=== PATIENT | female | born 1940 | race Caucasian/White ===

== ENCOUNTER 2023-07-22 11:24 | Emergency (ER) | payer MEDICARE, OTHER ==
[2023-07-22] MEDS: Sodium Chloride 0.9% 2.5 ML Syringe FLUSH PRN (11:41)
[2023-07-22] MEDS: Sodium Chloride 0.9% 10 ML Syringe FLUSH PRN (11:41)
[2023-07-22 11:57] LABS: BASOPHILS ABSOLUTE AUTO 0.08 K/uL (0.00-0.20); BASOPHILS PERCENT AUTO 0.5 % (0.0-1.0); EOSINOPHILS ABSOLUTE AUTO 0.06 K/uL (0.00-0.45); EOSINOPHILS PERCENT AUTO 0.4 % (0.0-6.0); HEMATOCRIT 44.5 % (37.0-47.0); HEMOGLOBIN 14.7 g/dL (12.0-16.0); IMMATURE GRAN ABSOLUTE AUTO 0.05 K/uL (0.00-0.05); IMMATURE GRAN PERCENT AUTO 0.3 % (0.0-0.4); LYMPHOCYTES ABSOLUTE AUTO 1.81 K/uL (1.00-4.80); LYMPHOCYTES PERCENT AUTO 11.9 % (24.0-44.0); MEAN CORPUSCULAR HEMOGLOBIN 31.1 pg (28.0-32.0); MEAN CORPUSCULAR VOLUME 94.1 fL (83.0-99.0); MEAN PLATELET VOLUME 9.9 fL (9.4-12.3); MONOCYTES ABSOLUTE AUTO 1.29 K/uL (0.00-0.80); MONOCYTES PERCENT AUTO 8.5 % (0.0-8.0); NEUTROPHILS ABSOLUTE AUTO 11.96 K/uL (1.80-7.70); NEUTROPHILS PERCENT AUTO 78.4 % (41.0-71.0); PLATELET COUNT,PLT 280 K/uL (150-400); RED BLOOD CELL COUNT 4.73 M/uL (4.10-5.30); WHITE BLOOD CELL COUNT,WBC 15.25 K/uL (3.9-11.3)
[2023-07-22 12:48] LABS: A/G RATIO 1.1 (0.9-1.6); ALBUMIN 3.8 g/dL (3.4-5.0); BILIRUBIN TOTAL 0.6 mg/dL (0.2-1.0); CALCIUM 9.1 mg/dL (8.5-10.1); CARBON DIOXIDE,CO2 27.1 mmol/L (21.0-32.0); CREATININE 1.3 mg/dL (0.6-1.0); EST CRCL DRUG DOSING (CG) 28.81 mL/min; POTASSIUM,K 3.9 mmol/L (3.5-5.1); PROTEIN TOTAL,TP 7.2 g/dL (6.4-8.2)
[2023-07-22] MEDS ORDERED: Metoprolol Tartrate 5 MG in Sodium Chloride 0.9% 50 ML IV ONE (12:56)
[2023-07-22] MEDS: NITROGLYCERIN 2.5 MG PO ONE (12:58)
[2023-07-22] MEDS: Iopamidol 755 MG/ML 500 ML Multipack Bottle IVPUSH STA ×2 (13:47→13:51)
[2023-07-22] MEDS: Metoprolol Tartrate 5 MG/5 ML SDV IV ONE (14:37)
[2023-07-22] MEDS: Diltiazem 120 MG Cap.CD PO ONE (14:45)
[2023-07-22] MEDS: Diltiazem 25 MG/5 ML SDV IVPUSH ONE (15:46)
== END 2023-07-22 16:37 | disposition home or self-care (01) ==
LOC: MW.ED 11:24
DX: R07.89 Other chest pain (principal); J44.9 Chronic obstructive pulmonary disease, unspecified; I48.91 Unspecified atrial fibrillation; I50.9 Heart failure, unspecified; Z79.01 Long term (current) use of anticoagulants; Z75.8 Other problems related to medical facilities and other health care
CPT/HCPCS: 36415; 71045; 71275; 80053; 83880; 84484; 85025; 85652; 86140; 93005; 96374; 99285; A9270; J3490; Q9967; 93010; 99284